=== PATIENT | male | born 1965 | race Caucasian/White ===

== ENCOUNTER → 2017-01-24 | Outpatient (CLI) | payer BC ==
[~2017-01-24] MED LIST: MOTRIN600 MG PO; NKM; SOMA350 MG PO
--- NOTE | 2017-01-24 14:06 | Diagnostic Imaging Report ---
Indication: Cough Comparison: 08/30/16 2 views of the chest obtained. Findings: Cardiomediastinal silhouette and pulmonary vascularity are within normal limits for age. The diaphragmatic contour is smooth and costophrenic angles are sharp. Lower cervical fusion plate noted. No pleural effusions are identified. The bones are unremarkable. Impression: No acute disease
== END | disposition home or self-care (01) ==
LOC: RAD 13:02
DX: R05 Cough (principal)
CPT/HCPCS: 71020

== ENCOUNTER → 2020-09-11 | Outpatient (CLI) | payer BC ==
--- NOTE | 2020-09-11 18:09 | Diagnostic Imaging Report ---
Indication: Cough Technique: 2 views of the chest Comparison: 01/24/2017 Findings: Lungs and pleural spaces are clear. The heart size is normal. Epigastric surgical clips are again demonstrated. There is surgical hardware in the cervical spine again demonstrated. No significant change Impression: No acute process
== END | disposition home or self-care (01) ==
LOC: RAD 16:14
DX: Z01.818 Encounter for other preprocedural examination (principal); R05 Cough; Z01.812 Encounter for preprocedural laboratory examination
CPT/HCPCS: 71046